=== PATIENT | female | born 1955 | race Caucasian/White ===

== ENCOUNTER → 2020-09-11 12:45 | Outpatient (CLI) | payer MEDICARE, SELFPAY ==
--- NOTE | ~2020-09-11 | MM_ITS ---
EXAMINATION: MM screening yogesh BI w sukhi HISTORY: Screening mammogram TECHNIQUE: Craniocaudal and mediolateral oblique 3-D tomosynthesis images were obtained and synthetic 2-D images were generated. CAD analysis was submitted and interpreted. COMPARISON: 06/21/2017, 05/11/2007 bilateral digital screening mammogram examinations BREAST PARENCHYMAL COMPOSITION: There are scattered areas of fibroglandular density. FINDINGS: . Occasional benign calcifications. There is no evidence of suspicious mass, calcification, or architectural distortion to suggest malignancy in either breast. There has been no suspicious int erval change. IMPRESSION: 1. No mammographic evidence of malignancy. 2. Recommend routine screening mammography in one year. BI-RADS Category 2: Benign finding(s). Reviewed, dictated and finalized at location D.
== END ==
PROVIDERS: PCP Family Medicine; Visit Provider Family Medicine
DX: Z12.31 Encounter for screening mammogram for malignant neoplasm of breast (principal)
CPT/HCPCS: 77063; 77067

== ENCOUNTER → 2020-09-13 11:14 | Outpatient (CLI) | payer MEDICARE, SELFPAY ==
--- NOTE | ~2020-09-13 | DEXA_ITS ---
Bone Density Report Name: Jaylene Louis Age: 65 Sex: Female Ethnicity: White Date of : 1955 Indication: postmenopausal; screening for osteoporosis; hysterectomy; Referring Provider: KENNY HILL Study: Bone densitometry was performed. Exam Date: September 13, 2020 Accession number: [id number] Bone Density: Region BMD T-score Z-score Classification AP Spine (L1-L4) 1.059 0.1 1.9 Normal Femoral Neck (Left) 0.690 -1.4 0.1 Osteopenia Total Hip (Left) 0.955 0.1 1.4 Normal Femoral Neck (Right) 0.625 -2.0 -0.5 Osteopenia Total Hip (Right) 0.872 -0.6 0.7 Normal Total Hip Mean 0.914 -0.3 1.1 Normal World Health Organization criteria for BMD impression classify patients as: Normal (T-score at or above -1.0), Osteopenia (T-score between -1.0 and -2.5), or Osteoporosis (T-score at or below -2.5). 10-year Fracture Risk(1): Major Osteoporotic Fracture 9.8% Hip Fracture 1.4% Reported Risk Factors: [place] (), Neck BMD=0.625, BMI=33.9 (1) FRAX(R) Version 3.08. Fracture probability calculated for an untreated patient. Fracture probability may be lower if the patient has received treatment. Previous Exams: Region Exam Age BMD T-score BMD Change BMD Change Date g/cm2 vs Baseline vs Previous AP Spine(L1-L4) 09/13/2020 65 1.059 0.1 -0.062 -0.062 02/22/2006 51 1.121 0.7 Total Hip(Left) 09/13/2020 65 0.955 0.1 0.006 0.006 02/22/2006 51 0.949 0.1 Total Hip(Right) 09/13/2020 65 0.872 -0.6 0.022 0.022 02/22/2006 51 0.850 -0.8 *Denotes significance at 95% confidence level, LSC for AP Spine = 0.022 g/cm2, LSC for Total Hip = 0.027 g/cm2 Clinical Information Provided by Patient: Has the following medical conditions: Hysterectomy Patient maximum height was 65.7 Menopause Age: 49 Drinks caffeinated beverages Onset of menses at age 14 Number of children 3 Impression: The patient has low bone mass, based on the Right Femoral Neck T-score. The patient has an estimated ten-year risk of hip fracture of 1.4% and an estimated ten-year risk of major fracture of 9.8%, based on the WHO FRAX algorithm. No significant bone loss was observed. Discussion: BONE DENSITY IS LOW AT ONE OR MORE SKELETAL SITES. This patient's lowest T-score is low at one or more skeletal sites. It meets the World Health Organization's (WHO) criteria for ?low bone mass? (T-score between -1.0 and -2
== END ==
PROVIDERS: Visit Provider Family Medicine
DX: Z78.0 Asymptomatic menopausal state (principal); M85.851 Other specified disorders of bone density and structure, right thigh; M85.852 Other specified disorders of bone density and structure, left thigh
CPT/HCPCS: 77080

== ENCOUNTER → 2020-09-21 01:37 | Outpatient (CLI) | payer MEDICARE, SELFPAY ==
[2020-09-21 19:38] LABS: SARS-CoV-2 RNA PCR Negative
== END ==
PROVIDERS: Visit Provider Internal Medicine Gastroenterology
DX: Z01.812 Encounter for preprocedural laboratory examination (principal); Z20.822 Contact with and (suspected) exposure to COVID-19
CPT/HCPCS: C9803; U0003; U0005

== ENCOUNTER 2020-09-24 00:49 | Day surgery (SDC) | payer MEDICARE, SELFPAY ==
[2020-09-10 14:47] VITALS: BMI 34.8
[2020-09-24 08:38] VITALS: BP 187/76; PULSE 67; RESP 22; TEMP 36.3; O2SAT 96; BMI 33.9
[2020-09-24] MEDS: LACTATED RINGERS 1,000 ML 150 ML IV CONT (08:53)
--- NOTE | 2020-09-24 09:03 | WPDANESEPPF ---
Anes - Initial Pre Proc Eval Procedure: Operation Date: 09/24/20 09:30 Proposed Procedures p Screening Colonoscopy - Elmer Moser MD Date/Time: 09/24/20 09:03 Surgeon: Elmer Moser MD Pre Op Diagnosis: hx of colon polyps Patient Data Age: 65 Gender: F Height: 5 ft 5 in Weight: 92.5 kg Last Vital Signs Temp 97.4 F L 09/24/20 08:38 Pulse 67 09/24/20 08:38 Resp 22 H 09/24/20 08:38 BP 187/76 H 09/24/20 08:38 Pulse Ox 96 09/24/20 08:38 Allergies Allergy/AdvReac Type Severity Reaction Status Date / Time No Known Allergies Allergy Verified 09/24/20 08:37 Home Medications Medication Instructions Recorded Confirmed Type antiarthritic combination no.2 900 900 mg PO DAILY 07/16/20 09/24/20 History mg tablet ascorbate calcium (vitamin C) 500 1,000 mg PO DAILY 07/16/20 09/24/20 History mg tablet aspirin 81 mg tablet,delayed 81 mg PO DAILY 07/16/20 09/24/20 History release biotin 1 mg capsule 1 mg PO DAILY 07/16/20 09/24/20 History chromium 1 mg capsule 1,000 mcg PO DAILY 07/16/20 09/24/20 History ezetimibe 10 mg-simvastatin 20 mg 1 tablet PO DAILY 07/16/20 09/24/20 History tablet flaxseed oil 1,000 mg capsule 500 mg PO DAILY 07/16/20 09/24/20 History folic acid 20 mg capsule 20 mg PO DAILY 07/16/20 09/24/20 History lactobacillus combination no.9 4 4,000 mmu cells PO DAILY 07/16/20 09/24/20 History billion cell capsule lutein 6 mg capsule 40 mg PO DAILY 07/16/20 09/24/20 History lysine 500 mg tablet 500 mg PO DAILY 07/16/20 09/24/20 History mecobalamin (vitamin B12) 5,000 1,000 mcg PO DAILY 07/16/20 09/24/20 History mcg lozenge multivitamin 1 tablet PO DAILY 07/16/20 09/24/20 History atenolol 50 mg tablet 50 mg PO DAILY #90 tablet 07/22/20 09/10/20 Rx hydrochlorothiazide 25 mg tablet 25 mg PO DAILY #90 tablet 07/22/20 09/24/20 Rx sodium,potassium,mag sulfates 17.5 See Rx Instructions PO .COMPLEX 09/06/20 Rx gram-3.13 gram-1.6 gram oral soln #354 ml Patient hx anesthesia problems: none Family hx anesthesia problems: none PMFSH Past Medical History Medical History (Updated 07/16/20 @ 21:52 by Hailey Rincon MD) Essential hypertension HLD (hyperlipidemia) Surgical History Surgical History H/O: section H/O: hysterectomy Social History Social History Smoking status: Never smoker Second hand tobacco smoke exposure: No Alcohol intake: current Alcohol use details: socially Substance use: never Substance use type: does not use Living arrangements: with family Gender identity (if verbalized by the patient): Female Spiritual care concerns: No Anes - Eval Final PreProcedure Day of Procedure 09/24/20 09:03 Patient weight: obese Heart: regular rate and rhythm Lungs: clear to auscultation Airway: Mallampati scale Neurological: alert and oriented Last oral intake: >/= 8 hours ASA classification: III Emergent: no Anesthetic plan: proceed Anesthesia type and monitoring: general and standard monitoring Informed Consent: The patient's anesthetic plan and its attendant risks and benefits were discussed with the patient/family/POA. Questions were solicited and answers provided to the satisfaction of the patient/family/POA.
--- NOTE | 2020-09-24 09:28 | WPDGICN ---
Assessment and Plan Assessment and plan (1) History of colon polyps: Code(s): Z86.010 - Personal history of colonic polyps Status: Acute Assessment and Plan: Patient has a history of colon polyps. She re-presented today for surveillance follow-up colonoscopy. Further recommendations will be given after endoscopy. GI Consult Note Consult date/time: 09/24/20 09:28 HPI: Jaylene Louis is a 65 year old female Presents for follow-up surveillance colonoscopy. Patient reports that her current weight appetite bowel movements are normal. She denies abdominal pain. She has had no blood in her stools. She does have a prior colonoscopy 5 years ago that showed colon polyps. Patient currently is doing well with no immediate complaints presents for surveillance exam. Review of Systems Review of Systems: All systems reviewed & are unremarkable except as noted in HPI and below PMFSH Past Medical History Medical History (Updated 09/24/20 @ 09:29 by Elmer Moser MD) Essential hypertension HLD (hyperlipidemia) Surgical History Surgical History H/O: section H/O: hysterectomy Social History Social History Smoking status: Never smoker Second hand tobacco smoke exposure: No Alcohol intake: current Alcohol use details: socially Substance use: never Substance use type: does not use Living arrangements: with family Gender identity (if verbalized by the patient): Female Spiritual care concerns: No Meds Home Medications and Allergies Home Medications Medication Instructions Recorded Confirmed Type antiarthritic combination no.2 900 900 mg PO DAILY 07/16/20 09/24/20 History mg tablet ascorbate calcium (vitamin C) 500 1,000 mg PO DAILY 07/16/20 09/24/20 History mg tablet aspirin 81 mg tablet,delayed 81 mg PO DAILY 07/16/20 09/24/20 History release biotin 1 mg capsule 1 mg PO DAILY 07/16/20 09/24/20 History chromium 1 mg capsule 1,000 mcg PO DAILY 07/16/20 09/24/20 History ezetimibe 10 mg-simvastatin 20 mg 1 tablet PO DAILY 07/16/20 09/24/20 History tablet flaxseed oil 1,000 mg capsule 500 mg PO DAILY 07/16/20 09/24/20 History folic acid 20 mg capsule 20 mg PO DAILY 07/16/20 09/24/20 History lactobacillus combination no.9 4 4,000 mmu cells PO DAILY 07/16/20 09/24/20 History billion cell capsule lutein 6 mg capsule 40 mg PO DAILY 07/16/20 09/24/20 History lysine 500 mg tablet 500 mg PO DAILY 07/16/20 09/24/20 History mecobalamin (vitamin B12) 5,000 1,000 mcg PO DAILY 07/16/20 09/24/20 History mcg lozenge multivitamin 1 tablet PO DAILY 07/16/20 09/24/20 History atenolol 50 mg tablet 50 mg PO DAILY #90 tablet 07/22/20 09/10/20 Rx hydrochlorothiazide 25 mg tablet 25 mg PO DAILY #90 tablet 07/22/20 09/24/20 Rx sodium,potassium,mag sulfates 17.5 See Rx Instructions PO .COMPLEX 09/06/20 Rx gram-3.13 gram-1.6 gram oral soln #354 ml Allergies Allergy/AdvReac Type Severity Reaction Status Date / Time No Known Allergies Allergy Verified 09/24/20 08:37 Vital Signs Vital Signs - 24 hr 09/24/20 08:38 Temperature 97.4 F L Pulse Rate 67 Respiratory Rate 22 H Blood Pressure 187/76 H Pulse Oximetry 96 Exam Narrative: Exam Narrative: Physical exam reveals patient to be alert. Vital signs stable. HEENT exam is unremarkable. Patient is anicteric. Lungs are clear to auscultation and percussion. Heart is without murmur or extra sounds. Abdominal exam bowel sounds are present soft nontender with no organomegaly. Digital external rectal exam is normal.
[2020-09-24 09:52] VITALS: BP 120/90; PULSE 65; RESP 20; O2SAT 97
[2020-09-24 10:02] VITALS: BP 135/85; PULSE 59; RESP 20; O2SAT 98
[2020-09-24 10:12] VITALS: BP 128/74; PULSE 55; RESP 18; O2SAT 99
== END 2020-09-24 10:25 | disposition home or self-care (01) ==
PROVIDERS: PCP Family Medicine; Visit Provider Internal Medicine Gastroenterology
PROC: 0DJD8ZZ Inspection of Lower Intestinal Tract, Via Natural or Artificial Opening Endoscopic (ICD-10-PCS; CPT 45378; principal; 2020-09-24 09:30)
DX: Z12.11 Encounter for screening for malignant neoplasm of colon (principal); Z86.010 Personal history of colon polyps; K57.30 Diverticulosis of large intestine without perforation or abscess without bleeding; K64.8 Other hemorrhoids; I10 Essential (primary) hypertension; E78.5 Hyperlipidemia, unspecified; Z79.82 Long term (current) use of aspirin; E66.9 Obesity, unspecified; Z68.33 Body mass index [BMI] 33.0-33.9, adult
CPT/HCPCS: G0105; J2704; J7120

== ENCOUNTER 2022-12-02 10:41 | Outpatient (CLI) | payer MEDICARE, SELFPAY ==
--- NOTE | ~2022-12-02 | MR_ITS ---
EXAMINATION: MR brain/brain stem wo con DATE: 12/02/2022 12:00 INDICATION: Other amnesia. TECHNIQUE: Magnetic resonance imaging (MRI) of the brain and brainstem was performed without intraven ous contrast. COMPARISON: Brain MRI 01/15/2011 FINDINGS: There are scattered areas of nonspecific increased T2-weighted signal intensity in the cere bral white matter and teagan. There is no intracranial hemorrhage, acute infarction, or abnormal intrac ranial mass lesion. The ventricles are normal in size. The orbits are normal. There is mild mucosal t hickening in the ethmoid sinuses. The mastoid air cells are normal. IMPRESSION: 1. Moderate nonspecific cerebral white matter disease and pontine disease, which likely represents ch ronic small vessel ischemic disease, worsened from 01/15/2011. Reviewed, dictated and finalized at location A. IMPRESSION: 1. Moderate nonspecific cerebral white matter disease and pontine disease, whic h likely represents chronic small vessel ischemic disease, worsened from 011.
== END 2022-12-02 10:42 | disposition home or self-care (01) ==
LOC: ANHIMG 10:44
PROVIDERS: PCP Family Medicine; Visit Provider Family Medicine
DX: R41.3 Other amnesia (principal); R94.02 Abnormal brain scan
CPT/HCPCS: 70551

== ENCOUNTER 2024-01-02 13:14 | Emergency (ER) | payer MEDICARE, SELFPAY ==
--- NOTE | ~2024-01-02 | XR_ITS ---
EXAMINATION: XR shoulder LT min 2V DATE: 01/02/2024 13:50 INDICATION: Left shoulder pain post fall TECHNIQUE: AP internally and externally rotated, AP oblique externally rotated and transscapular Y vi ews of the left shoulder were obtained. COMPARISON: None FINDINGS: Normal alignment. No fracture.Mild glenohumeral and acromioclavicular osteoarthritis. Subtle calcifi c density projecting along the inferior margin of the acromion which could represent either a loose o steochondral body or rotator cuff calcific tendinitis. Visualized portions of the upper lungs are huong ar. Soft tissues are unremarkable. IMPRESSION: 1. Mild left glenohumeral and acromioclavicular osteoarthritis. 2. Loose osteochondral body versus rotator cuff calcific tendinitis projecting inferior to the acromi on. Reviewed, dictated and finalized at location A. IMPRESSION: 1. Mild left glenohumeral and acromioclavicular osteoarthritis. 2. Loose osteochondral body versus rotator cuff calcific tendinitis projecting inferior to the acromion.
[2024-01-02 13:21] VITALS: BP 217/96; PULSE 101; RESP 18; TEMP 36.4; O2SAT 97
[2024-01-02 13:46] VITALS: RESP 19; O2SAT 99
[2024-01-02 15:15] VITALS: BP 170/90
--- NOTE | 2024-01-02 15:43 | ED.GENADULT ---
HPI - General Adult General Chief complaint: Unspecified Stated complaint: glf wednesday Time Seen by Provider: 01/02/24 14:08 Source: patient and family Mode of arrival: ambulatory Limitations: no limitations History of Present Illness HPI narrative: This is a 68 year old female that presents to the ER for left shoulder pain. Reports a fall about 1 week ago. She has had worsening pain since. Reports she fell onto her left shoulder. She took Ibuprofen and Tylenol today with some relief. She did not hit her head or lose consciousness. Denies decreased ROM or numbness. Related Data Home Medications Medication Instructions Recorded Confirmed ascorbate calcium (vitamin C) 500 1,000 mg PO DAILY 07/16/20 06/09/23 mg tablet aspirin 81 mg tablet,delayed 81 mg PO DAILY 07/16/20 06/09/23 release (Adult Low Dose Aspirin) Allergies Allergy/AdvReac Type Severity Reaction Status Date / Time No Known Allergies Allergy Verified 01/02/24 13:16 Review of Systems Review of Systems: CONSTITUTIONAL: Denies fever MUSCULOSKELETAL: Reports joint pain, and myalgia. NEUROLOGIC: Denies numbness, or weakness. All systems reviewed & are unremarkable except as noted in HPI and below PMFSH Past Medical History Medical History Dementia Essential hypertension HLD (hyperlipidemia) Prediabetes Surgical History Surgical History H/O: section H/O: hysterectomy Social History Social History Smoking status: Never smoker Second hand tobacco smoke exposure: No Alcohol intake: current Alcohol use details: socially Substance use: never Substance use type: does not use Lack of Transportation: No Lack of Food: Never True Current Housing: I Have Housing Concerned About Future Housing: No Difficulty Paying Gas/Electric Bills: No Difficulty Paying for Meds: No Currently Unemployed: No Education: Bachelor's Degree Difficulty w/ Childcare or Family Care: No Living arrangements: with family Occupation/Education: retired Gender identity (if verbalized by the patient): Female Spiritual care concerns: No Exam Narrative: GENERAL: Well-appearing, well-nourished, and in no acute distress. HEAD: Normocephalic, atraumatic. EYES: EOMI. CHEST: Clear to auscultation. No respiratory distress. No wheezes rales or rhonchi HEART: Regular rate and rhythm. No murmur heard. Normal peripheral pulses. EXTREMITIES: Normal range of motion. No edema or obvious deformity. Normal radial pulse. Normal sensation SKIN: Warm, dry, no rash. NEURO: No focal deficits. Alert and oriented x3. PSYCH: Normal mood and affect Course Course Emergency Course: Patient left before receiving discharge instructions Vital Signs Vital signs: Vital Signs Temperature 97.6 F 01/02/24 13:21 Pulse Rate 101 H 01/02/24 13:21 Respiratory Rate 18 01/02/24 13:21 Blood Pressure 217/96 H 01/02/24 13:21 Pulse Oximetry 97 01/02/24 13:21 Temperature 97.6 F 01/02/24 13:21 Pulse Rate 101 H 01/02/24 13:21 Respiratory Rate 19 01/02/24 13:46 Blood Pressure 217/96 H 01/02/24 13:21 Pulse Oximetry 99 01/02/24 13:46 Medical Decision Making MDM Narrative Medical decision making narrative: Patient presents to the emergency department after a fall 1 week ago with left shoulder injury. Patient incidentally hypertensive, this improved without intervention. She does report she took her blood pressure medications today. Patient is neurovascularly intact. Left shoulder x-ray shows osteoarthritis as well as possible rotator cuff tendinitis. Patient was updated on her workup. She had reported to triage that she was feeling generally unwell and having some nausea. She does not wish to have any further workup of this at this time. Instruc
--- NOTE | 2024-01-02 15:49 | PC.NURSE ---
pt and were under the idea that they were able to leave. both were made aware that EDP was in another room and unable to print out dc papers. educated then that they would be ready shortly,both pot and wanted to leave. both were educated on what to do, if they chose to leave pt did leave the dept with , ambulated out with steady gait
== END 2024-01-02 15:52 | disposition home or self-care (01) ==
PROVIDERS: Emergency Provider Physician Assistant; PCP Family Medicine
DX: M25.512 Pain in left shoulder (principal); F03.90 Unspecified dementia, unspecified severity, without behavioral disturbance, psychotic disturbance, mood disturbance, and anxiety; I10 Essential (primary) hypertension; E78.5 Hyperlipidemia, unspecified
CPT/HCPCS: 73030; 99283